=== PATIENT | female | born 1960 ===

== ENCOUNTER 2019-07-20 07:02 | Day surgery (SDC) | payer BC, OTHER ==
--- NOTE | 2019-07-12 14:27 | HP ---
PREOPERATIVE HISTORY AND PHYSICAL: DATE OF SURGERY/ADMISSION: 07/20/19 DATE OF OFFICE VISIT/ENCOUNTER: 07/11/19 ATTENDING SURGEON: Skyla Lucio MD.* (DICTATED BY MARGOTH THOMPSON) PROCEDURE: Trigger release, left ring finger. 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 She has had ongoing problems with bilateral ring finger triggering for a couple of years now. She has received cortisone injections over time but symptoms returned. Currently, the left is giving her more problems than the right. She has had other trigger finger releases in the past and has done well with those. She is interested in pursuing release for her left ring finger at this time and has consented to proceed with surgery. PAST MEDICAL HISTORY: Unremarkable. PAST SURGICAL HISTORY: 1. Left knee partial meniscectomy. 2. Trigger releases, bilateral hands. CURRENT MEDICATIONS: None. ALLERGIES: ROBITUSSIN, reaction is unknown. FAMILY MEDICAL HISTORY: Noncontributory. 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 She denies tobacco use and recreational drug use. She drinks alcohol on rare occasion. REVIEW OF SYSTEMS: Negative for general, cephalic, cardiovascular, respiratory , GI, , other musculoskeletal, integumentary, endocrine, neurologic, and hematologic symptoms. Infectious disease, negative for MRSA, hepatitis C, HIV. PHYSICAL EXAMINATION GENERAL: Well-developed, well-nourished, 59-year-old female, in no acute distress. VITAL SIGNS: Height 5 feet 4 inches, weight 132 pounds, pulse rate 60, blood pressure 128/78. HEENT: Normocephalic, atraumatic. Pupils are equal, round and reactive to light and accommodation. Extraocular movements are intact. NECK: Supple. No palpable lymph nodes. Throat is clear. PULMONARY: Lungs are clear to auscultation bilaterally. No wheezes, rales, or rhonchi. CARDIOVASCULAR: Regular rate and rhythm. S1, S2. No murmurs, rubs, or gallop. No edema. ABDOMEN: Positive bowel sounds, soft, nontender. MUSCULOSKELETAL: On exam of bilateral hands, she has well-healed incisions from middle finger trigger releases. She has tenderness to palpation at the A1 minh both ring fingers and some locking when she flexes her left hand ring finger. NEUROLOGIC: Alert and oriented x3. Cranial nerves II through XII are intact. Sensation is intact to light touch. IMPRESSION: Bilateral ring finger trigger fingers. PLAN: The patient is scheduled to undergo a trigger release, left ring finger with Dr. Lucio on 07/20/19. She will return to the office 10 days postop for followup and suture removal. A prescription for tramadol was e-scribed to the patient's pharmacy for postoperative pain management. MARGOTH THOMPSON [id number]/CPS #: [id number] MARLENE
[~2019-07-20 07:02] MED LIST: Buffered Lidocaine 1% SYRIN* 1 ML/SYRINGE INTRADERM ONE; Lactated Ringers 1000 ML Bag* 1,000 ML IV SCH
[2019-07-20] MEDS ORDERED: Lidocaine 1% INJ* 10 MG/ML 30 ML SDV ONE (07:09)
[2019-07-20] MEDS ORDERED: Midazolam* 1 MG/ML 2 ML VIAL (2 MG) ONE (07:44)
[2019-07-20] MEDS ORDERED: fentaNYL* 50 MCG/ML 2 ML VIAL (100 MCG VIAL) ONE (07:44)
[2019-07-20] MEDS ORDERED: Propofol* 10 MG/ML 20 ML BTL ONE (07:45)
[2019-07-20] MEDS ORDERED: Lidocaine 2% PF * 5 ML VIAL ONE (07:45)
[2019-07-20] MEDS ORDERED: Ondansetron INJ* 2 MG/ML VIAL ONE (07:45)
[2019-07-20] MEDS ORDERED: Ketorolac INJ* 30 MG/ML 1 ML VIAL ONE (07:45)
[2019-07-20] MEDS ORDERED: Dexamethasone IV* 4 MG/ML 1 ML (4 MG) ONE (07:45)
[2019-07-20] MEDS ORDERED: Naloxone* 0.4 MG/ML 1 ML VIAL IV PRN (08:12)
[2019-07-20] MEDS ORDERED: Ondansetron INJ* 2 MG/ML VIAL IV PRN (08:12)
[2019-07-20] MEDS ORDERED: Acetaminophen TAB* 325 MG PO PRN (08:12)
[2019-07-20 08:20] VITALS: BP 128/80
--- NOTE | 2019-07-20 21:49 | OP ---
DATE OF OPERATION: 07/20/19 [facility] DATE OF : 64 SURGEON: Skyla Lucio MD INVESTMENT ADVISOR: MARGOTH Hampton ANESTHESIA: Local MAC. PRE-OP DIAGNOSIS: Left ring finger trigger finger. POST-OP DIAGNOSIS: Left ring finger trigger finger. OPERATIVE PROCEDURE: Left ring finger trigger release. ESTIMATED BLOOD LOSS: Zero. TOURNIQUET TIME: About 10 minutes. INDICATION FOR PROCEDURE: Dee Dee is a 59-year-old female who has triggering and locking of her left ring finger. She has failed conservative treatment and presents for trigger finger release. DESCRIPTION OF PROCEDURE: The patient was brought to the operating room and was given a sedation anesthetic and a local infiltration of 10 cc of 1% plain lidocaine in the palm of her left hand. The skin of her left hand and forearm was prepped and draped in the usual sterile fashion. The hand and forearm were exsanguinated and the tourniquet elevated to 250 mmHg. A transverse incision was made centered over the A1 minh of the left ring finger, dissected bluntly through the subcutaneous tissue down to the A1 minh. The minh was incised longitudinally completely releasing the flexor tendon, which was in good condition. The wound was irrigated and the skin edges were reapproximated with 4-0 nylon suture. The wound was dressed with Xeroform, 4x4, Webril and an Itz wrap. The patient tolerated the procedure well and was brought to the recovery room in good condition. [id number]/CPS #: [id number] MTDD
== END 2019-07-20 08:54 | disposition home or self-care (01) ==
LOC: OREAST 07:02
PROVIDERS: ATTEND Orthopaedic Surgery
DX: M65.342 Trigger finger, left ring finger (principal); Z88.8 Allergy status to other drugs, medicaments and biological substances
CPT/HCPCS: J1100; J1885; J2250; J2405; J2704; J3010